=== PATIENT | male | born 1965 | race Caucasian/White ===

== ENCOUNTER 2018-08-01 08:12 | Inpatient (IN) | payer OTHER ==
[2018-08-01 08:34] VITALS: BMI 22.1
--- NOTE | 2018-08-01 08:48 | HP ---
CIWA Score Nausea/Vomitin Muscle Tremors: 2 Anxiety: 3 Agitation: 2 Paroxysmal Sweats: 1-Minimal Palms Moist Orientation: 0-Oriented Tacttile Disturbances: 1-Very Mild Itch/Numbness Auditory Disturbances: 1-Very Mild Visual Disturbances: 0-None Headache: 2-Mild CIWA-Ar Total Score: 14 - Admission Criteria OASAS Guidelines: Admission for Medically Managed Detox: Requires at least one of the followin. CIWA greater than 12 2. Seizures within the past 24 hours 3. Delirium tremens within the past 24 hours 4. Hallucinations within the past 24 hours 5. Acute intervention needed for co occurring medical disorder 6. Acute intervention needed for co occurring psychiatric disorder 7. Severe withdrawal that cannot be handled at a lower level of care (continued vomiting, continued diarrhea, abnormal vital signs) requiring intravenous medication and/or fluids 8. Admission ROS S - HPI Chief Complaint: i am here need help to stop drinking alcohol,cocaine and marijuana Allergies/Adverse Reactions: Allergies Allergy/AdvReac Type Severity Reaction Status Date / Time No Known Allergies Allergy Verified 08/01/18 09:26 History of Present Illness: this 52 years old male with alcohol,cocaine and marijuana dependence,seeking detox, last detox 2017 at [facility] [place] [facility] [place] ,seizure or black out on train history of hypertension non compliance last taking medication 6 months ago multiple admissions in the past nicotine dependence 1 pack/day ,does not want nicotine replacement weight loss bipolar disorder none compliance with medication,last 2 months ago no significant period of sobriety - Ebola screening Have you traveled outside of the country in the last 21 days: No (N) Have you had contact with anyone from an Ebola affected area: No Do you have a fever: No - Review of Systems Constitutional: Loss of Appetite, Malaise, Night Sweats, Changes in sleep, Weakness, Unintentional Wgt. Loss EENT: reports: Nose Congestion Respiratory: reports: No Symptoms reported Cardiac: reports: No Symptoms Reported GI: reports: Blood Streaked Bowels, Vomiting, Abdominal cramping : reports: No Symptoms Reported Musculoskeletal: reports: Back Pain, Muscle Pain Integumentary: reports: Dryness Neuro: reports: Headache, Tremors Endocrine: reports: No Symptoms Reported Hematology: reports: No Symptoms Reported Psychiatric: reports: No Sypmtoms Reported, Judgement Intact, Mood/Affect Appropiate, Orientated x3, Anxious, Depressed, other (bipolar disorder) Patient History - Patient Medical History Hx Anemia: No Hx Asthma: No Hx Chronic Obstructive Pulmonary Disease (COPD): No Hx Cancer: No Hx Cardiac Disorders: No Hx Congestive Heart Failure: No Hx Hypertension: Yes (non compliance) Hx Hypercholesterolemia: No Hx Pacemaker: No HX Cerebrovascular Accident: No Hx Seizures: Yes (possible 07/31/18) Hx Dementia: No Hx Diabetes: No Hx Gastrointestinal Disorders: No Hx Liver Disease: No Hx Genitourinary Disorders: No Hx Sexually Transmitted Disorders: No Hx Renal Disease (ESRD): No Hx Thyroid Disease: No Hx Human Immunodeficiency Virus (HIV): No (last 04/10 negative) Hx Hepatitis C: No Hx Depression: Yes Hx Suicide Attempt: No Hx Bipolar Disorder: Yes (no meds for 2 months) Hx Schizophrenia: No Other Medical History: no suicidal,no homicidal - Patient Surgical History Past Surgical History: No - PPD History Previous Implant?: Yes Documented Results: Negative w/o proof Implanted On Prior [facility] Admission?: No PPD to be Administered?: Yes - Smoking Cessation Smoking history: Current every day smoker Have you smoked in the past 12 months: Yes Aproximately how many cigarettes per day: 20 Cigars Per Day: 0 Hx Chewing Tobacco Use: No Initiated information on smoking cessation: Yes 'Breaking Loose' booklet given: 08/01/18 - Substance & Tx. History Hx Alcohol Use: Yes Hx Substance Use: Yes Substance Use Type: Alcohol, Cocaine, Marijuana Hx Substance Use Treatment: Yes (2016) - Substances abused Alcohol Substance route: Oral Frequency: Daily Amount used: 3 of 6 packs of 12 ozs of beer Age of first use: 28 Date of last use: 07/31/18 Cocaine Substance route: Inhalation Frequency: 1-3 times last 30 days Amount used: 100$ Age of first use: 28 Date of last use: 07/31/18 Marijuana/Hashish Frequency: 1-2 times per week Amount used: 10$ Age of first use: 28 Date of last use: 07/31/18 Family Disease History - Family Disease History Family Disease History: Other: Father (alcohol,), Mother (alcoholl, ) Admission Physical Exam [facility] - Vital Signs Vital Signs: Vital Signs - 24 hr 08/01/18 08:32 Temperature 97.0 F L Pulse Rate 65 Respiratory 18 Rate Blood Pressure 155/94 - Physical General Appearance: Yes: Moderate Distress, Tremorous, Irritable, Sweating, Anxious HEENTM: Yes: Normal ENT Inspection, Normocephalic, [place], Pharynx Normal Respiratory: Yes: Within Normal Limits, Lungs Clear, Normal Breath Sounds Neck: Yes: Within Normal Limits, Supple, Trachea in good position Cardiology: Yes: Within Normal Limits, Regular Rhythm, Regular Rate, S1, S2 Abdominal: Yes: Within Normal Limits, Normal Bowel Sounds, Non Tender, Flat, Soft Genitourinary: Yes: Within Normal Limits Back: Yes: Muscle Spasm Musculoskeletal: Yes: full range of Motion, Back pain, Muscle Pain Extremities: Yes: Tremors Neurological: Yes: whiting can worker II-XII NML intact, Fully Oriented, Alert, Motor Strength 5/5 Integumentary: Yes: Dry Lymphatic: Yes: Within Normal Limits - Diagnostic (1) Alcohol dependence with uncomplicated withdrawal Current Visit: Yes Status: Acute (2) Syncope Current Visit: Yes Status: Acute (3) Alcohol related seizure Current Visit: Yes Status: Acute (4) Essential hypertension Current Visit: Yes Status: Acute (5) Nicotine dependence Current Visit: Yes Status: Acute (6) Weight loss Current Visit: Yes Status: Acute (7) Bipolar disorder Current Visit: Yes Status: Acute Cleared for Admission S - Detox or Rehab [facility] Level of Care: Medically Managed Detox Regimen/Protocol: Librium Breathalyzer - Breathalyzer Breathalyzer: 0 Urine Drug Screen - Test Device Lot number: [id number] Expiration date: 04/22/20 - Control Is test valid?: Yes - Results Drug screen NEGATIVE: No Urine drug screen results: THC-Marijuana, PEARL-Cocaine Inpatient Rehab Admission - Rehab Decision to Admit Inpatient rehab admission?: No
[2018-08-01] MEDS ORDERED: ACETAMINOPHEN 325 MG TABLET (FP) PO PRN ×2 (09:01)
[2018-08-01] MEDS ORDERED: hydrOXYzine PAMOATE 25 MG CAPSULE (FP) PO PRN (09:01)
[2018-08-01] MEDS ORDERED: chlordiazePOXIDE HCL 25 MG CAPSULE PO PRN (09:01)
[2018-08-01] MEDS ORDERED: MAGNESIUM HYDROX 2400MG/30ML ORAL SUSPENSION 30 ML CUP PO PRN (09:01)
[2018-08-01] MEDS ORDERED: MAG HYDROX/AL HYDROX/SIMETH 30 ML UNIT-DOSE CUP PO PRN (09:01)
[2018-08-01] MEDS ORDERED: MAGNESIUM CITRATE 300 ML BOTTLE PO PRN (09:01)
[2018-08-01] MEDS ORDERED: IBUPROFEN 400 MG TABLET (FP) PO PRN (09:01)
[2018-08-01] MEDS ORDERED: MENTHOL/PHENOL 1 EACH UD MM PRN (09:01)
[2018-08-01] MEDS ORDERED: BISMUTH SUBSALICYLATE 524 MG/30 ML UD PO PRN (09:01)
[2018-08-01] MEDS ORDERED: cloNIDine HCL 0.1 MG TABLET PO ONE (09:05)
[2018-08-01] MEDS: chlordiazePOXIDE HCL 25 MG CAPSULE PO SCH ×3 (10:02→22:36)
[2018-08-01] MEDS: PRENATAL VITAMINS W/ FOLIC ACID TABLET (FP) PO SCH (10:03)
[2018-08-01] MEDS ORDERED: TRIAMTERENE AND HCTZ - 37.5 MG/25 MG CAPSULE PO ONE (17:04)
--- NOTE | 2018-08-01 17:06 | PN ---
S Progress Note Note: bp 161/100,withdrawal symptom,hypertension will give dyazide (25/37.5mg) po now then daily continue detox ,bp monitoring
[2018-08-01] MEDS: METHOCARBAMOL 500 MG TABLET PO PRN (20:34)
[2018-08-01] MEDS: THIAMINE HCL 100 MG TABLET (FP) PO SCH (22:36)
[2018-08-01] MEDS: MELATONIN 5 MG TABLETS PO PRN (22:37)
[2018-08-02] MEDS: chlordiazePOXIDE HCL 25 MG CAPSULE PO SCH ×4 (06:26→22:42)
[2018-08-02] MEDS: METHOCARBAMOL 500 MG TABLET PO PRN ×2 (06:26→20:16)
[2018-08-02 09:59] LABS: ALBUMIN 4.3 g/dl (3.4-5.0); BILIRUBIN,TOTAL 1.2 mg/dL (0.2-1); CALCIUM 9.8 mg/dL (8.5-10.1); CREATININE 0.9 mg/dL (0.55-1.3); POTASSIUM 4.3 mmol/L (3.5-5.1); TOT PROT 7.7 g/dl (6.4-8.2)
[2018-08-02 10:12] LABS: HEMATOCRIT 48.9 % (35.4-49); HEMOGLOBIN 16.5 GM/dL (11.7-16.9); MCH 30.7 pg (25.7-33.7); MCHC 33.8 g/dl (32.0-35.9); MEAN CELL VOLUME 90.9 fl (80-96); MEAN PLT VOLUME 8.5 fl (7.5-11.1); PLATELET COUNT 427 K/MM3 (134-434); RBC 5.38 M/mm3 (4.00-5.60); RDW 14.7 % (11.9-15.9); WHITE BLOOD COUNT 5.5 K/mm3 (4.0-10.0)
[2018-08-02 10:27] LABS: PH,URINE 7.5 (5.0-8.0); URINE APPEARANCE CLEAR; URINE BILIRUBIN NEGATIVE (NEGATIVE); URINE COLOR YELLOW; URINE GLUCOSE (UA) NEGATIVE (NEGATIVE); URINE KETONE NEGATIVE (NEGATIVE); URINE LEUK ESTERASE NEGATIVE (NEGATIVE); URINE NITRITE NEGATIVE (NEGATIVE); URINE PROTEIN NEGATIVE (NEGATIVE); URINE UROBILINOGEN 0.2 mg/dL (0.2-1.0)
[2018-08-02] MEDS: PRENATAL VITAMINS W/ FOLIC ACID TABLET (FP) PO SCH (10:37)
--- NOTE | 2018-08-02 11:13 | PN ---
S CIWA - CIWA Score Nausea/Vomitin-Mild Nausea/No Vomiting Muscle Tremors: 3 Anxiety: 1-Mildly Anxious Agitation: 2 Paroxysmal Sweats: 1-Minimal Palms Moist Orientation: 2-Disoriented Date<2 days Tacttile Disturbances: 0-None Auditory Disturbances: 0-None Visual Disturbances: 0-None Headache: 2-Mild CIWA-Ar Total Score: 12 [facility] Progress Note (SOAP) Subjective: long history of hypertension none adherence with antihypertensant stated with dyazide adds clonidine 0.1 mg po prn Objective: 08/02/18 11:13 Vital Signs Temperature 98.6 F 08/02/18 09:12 Pulse Rate 55 L 08/02/18 09:12 Respiratory Rate 18 08/02/18 09:12 Blood Pressure 127/80 08/02/18 09:12 O2 Sat by Pulse Oximetry (%) Laboratory Last Values WBC 5.5 K/mm3 (4.0-10.0) 08/02/18 07:40 RBC 5.38 M/mm3 (4.00-5.60) 08/02/18 07:40 Hgb 16.5 GM/dL (11.7-16.9) 08/02/18 07:40 Hct 48.9 % (35.4-49) 08/02/18 07:40 MCV 90.9 fl (80-96) 08/02/18 07:40 MCH 30.7 pg (25.7-33.7) 08/02/18 07:40 MCHC 33.8 g/dl (32.0-35.9) 08/02/18 07:40 RDW 14.7 % (11.9-15.9) 08/02/18 07:40 Plt Count 427 K/MM3 (134-434) 08/02/18 07:40 MPV 8.5 fl (7.5-11.1) 08/02/18 07:40 Sodium 138 mmol/L (136-145) 08/02/18 07:40 Potassium 4.3 mmol/L (3.5-5.1) 08/02/18 07:40 Chloride 100 mmol/L (98-107) 08/02/18 07:40 Carbon Dioxide 31 mmol/L (21-32) 08/02/18 07:40 Anion Gap 7 MMOL/L (8-16) L 08/02/18 07:40 BUN 14 mg/dL (7-18) 08/02/18 07:40 Creatinine 0.9 mg/dL (0.55-1.3) 08/02/18 07:40 Est GFR (CKD-EPI)AfAm 111.83 08/02/18 07:40 Est GFR (CKD-EPI)NonAf 96.49 08/02/18 07:40 Random Glucose 92 mg/dL (74-106) 08/02/18 07:40 Calcium 9.8 mg/dL (8.5-10.1) 08/02/18 07:40 Total Bilirubin 1.2 mg/dL (0.2-1) H 08/02/18 07:40 AST 24 U/L (15-37) 08/02/18 07:40 ALT 46 U/L (13-61) 08/02/18 07:40 Alkaline Phosphatase 105 U/L (45-117) 08/02/18 07:40 Total Protein 7.7 g/dl (6.4-8.2) 08/02/18 07:40 Albumin 4.3 g/dl (3.4-5.0) 08/02/18 07:40 Urine Color Yellow 08/02/18 08:25 Urine Appearance Clear 08/02/18 08:25 Urine pH 7.5 (5.0-8.0) 08/02/18 08:25 Ur Specific [place] 1.011 (1.010-1.035) 08/02/18 08:25 Urine Protein Negative (NEGATIVE) 08/02/18 08:25 Urine Glucose (UA) Negative (NEGATIVE) 08/02/18 08:25 Urine Ketones Negative (NEGATIVE) 08/02/18 08:25 Urine Blood Negative (NEGATIVE) 08/02/18 08:25 Urine Nitrite Negative (NEGATIVE) 08/02/18 08:25 Urine Bilirubin Negative (NEGATIVE) 08/02/18 08:25 Urine Urobilinogen 0.2 mg/dL (0.2-1.0) 08/02/18 08:25 Ur Leukocyte Esterase Negative (NEGATIVE) 08/02/18 08:25 RPR Titer Nonreactive (NONREACTIVE) 08/02/18 07:40 lab noted Assessment: 08/02/18 11:14 alcohol withdrawal sx hypertension Plan: continue detox discuss risks of bp elevation
[2018-08-02] MEDS: TRIAMTERENE AND HCTZ - 37.5 MG/25 MG CAPSULE PO SCH (11:27)
[2018-08-02] MEDS: cloNIDine HCL 0.1 MG TABLET PO PRN ×2 (13:26→22:43)
--- NOTE | 2018-08-02 15:10 | EKG ---
Test Reason : Blood Pressure : / mmHG Vent. Rate : 061 BPM Atrial Rate : 061 BPM P-R Int : 112 ms QRS Dur : 092 ms QT Int : 432 ms P-R-T Axes : 071 069 040 degrees QTc Int : 434 ms NORMAL SINUS RHYTHM WITH SINUS ARRHYTHMIA MODERATE VOLTAGE CRITERIA FOR LVH, MAY BE NORMAL VARIANT BORDERLINE ECG NO PREVIOUS ECGS AVAILABLE Confirmed by KAREN RHODES MD ([id number]) on 08/02/2018 3:10:13 PM Referred By: Confirmed By:KAREN RHODES MD
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
[2018-08-02] MEDS ORDERED: traZODone HCL 50 MG TABLET (FP) PO SCH (22:00)
[2018-08-02] MEDS: DIVALPROEX SODIUM 250 MG TABLET E.C. PO SCH (22:42)
[2018-08-02] MEDS: MELATONIN 5 MG TABLETS PO PRN (22:42)
[2018-08-02] MEDS: THIAMINE HCL 100 MG TABLET (FP) PO SCH (22:42)
[2018-08-02] MEDS: risperiDONE 1 MG TABLET (FP) PO SCH (22:42)
[2018-08-03] MEDS: chlordiazePOXIDE HCL 25 MG CAPSULE PO SCH (07:01)
[2018-08-03 09:10] VITALS: BP 91/69; PULSE 90; TEMP 96.4
[2018-08-03] MEDS: DIVALPROEX SODIUM 250 MG TABLET E.C. PO SCH (10:56)
[2018-08-03] MEDS: risperiDONE 1 MG TABLET (FP) PO SCH (10:57)
[2018-08-03] MEDS: TRIAMTERENE AND HCTZ - 37.5 MG/25 MG CAPSULE PO SCH (10:57)
[2018-08-03] MEDS: PRENATAL VITAMINS W/ FOLIC ACID TABLET (FP) PO SCH (10:57)
[2018-08-03] MEDS ORDERED: chlordiazePOXIDE HCL 10 MG CAPSULE PO PRN (11:00)
[2018-08-03] MEDS ORDERED: chlordiazePOXIDE HCL 10 MG CAPSULE PO SCH (11:00)
--- NOTE | 2018-08-03 16:00 | DS ---
[facility] Detox Discharge Summary Admission Date: 08/01/18 Discharge Date: 08/03/18 - History Present History: Alcohol Dependence Additional Comments: 52 years old male admitted on 08/01/18 for alcohol withdrawal stabilization insists to leave the detox unit without apparent reason patient is alert no acute distress denies suicidal ideation aftercare community self help support group Pertinent Past History: strong recommend the patient to utilize community health services using ER services if necessary - Physical Exam Results Vital Signs: Vital Signs Temperature 96.4 F L 08/03/18 09:09 Pulse Rate 90 08/03/18 09:09 Respiratory Rate 18 08/03/18 09:09 Blood Pressure 91/69 08/03/18 09:09 O2 Sat by Pulse Oximetry (%) Pertinent Admission Physical Exam Findings: alcohol withdrawal sx Laboratory Last Values WBC 5.5 K/mm3 (4.0-10.0) 08/02/18 07:40 RBC 5.38 M/mm3 (4.00-5.60) 08/02/18 07:40 Hgb 16.5 GM/dL (11.7-16.9) 08/02/18 07:40 Hct 48.9 % (35.4-49) 08/02/18 07:40 MCV 90.9 fl (80-96) 08/02/18 07:40 MCH 30.7 pg (25.7-33.7) 08/02/18 07:40 MCHC 33.8 g/dl (32.0-35.9) 08/02/18 07:40 RDW 14.7 % (11.9-15.9) 08/02/18 07:40 Plt Count 427 K/MM3 (134-434) 08/02/18 07:40 MPV 8.5 fl (7.5-11.1) 08/02/18 07:40 Sodium 138 mmol/L (136-145) 08/02/18 07:40 Potassium 4.3 mmol/L (3.5-5.1) 08/02/18 07:40 Chloride 100 mmol/L (98-107) 08/02/18 07:40 Carbon Dioxide 31 mmol/L (21-32) 08/02/18 07:40 Anion Gap 7 MMOL/L (8-16) L 08/02/18 07:40 BUN 14 mg/dL (7-18) 08/02/18 07:40 Creatinine 0.9 mg/dL (0.55-1.3) 08/02/18 07:40 Est GFR (CKD-EPI)AfAm 111.83 08/02/18 07:40 Est GFR (CKD-EPI)NonAf 96.49 08/02/18 07:40 Random Glucose 92 mg/dL (74-106) 08/02/18 07:40 Calcium 9.8 mg/dL (8.5-10.1) 08/02/18 07:40 Total Bilirubin 1.2 mg/dL (0.2-1) H 08/02/18 07:40 AST 24 U/L (15-37) 08/02/18 07:40 ALT 46 U/L (13-61) 08/02/18 07:40 Alkaline Phosphatase 105 U/L (45-117) 08/02/18 07:40 Total Protein 7.7 g/dl (6.4-8.2) 08/02/18 07:40 Albumin 4.3 g/dl (3.4-5.0) 08/02/18 07:40 Urine Color Yellow 08/02/18 08:25 Urine Appearance Clear 08/02/18 08:25 Urine pH 7.5 (5.0-8.0) 08/02/18 08:25 Ur Specific [place] 1.011 (1.010-1.035) 08/02/18 08:25 Urine Protein Negative (NEGATIVE) 08/02/18 08:25 Urine Glucose (UA) Negative (NEGATIVE) 08/02/18 08:25 Urine Ketones Negative (NEGATIVE) 08/02/18 08:25 Urine Blood Negative (NEGATIVE) 08/02/18 08:25 Urine Nitrite Negative (NEGATIVE) 08/02/18 08:25 Urine Bilirubin Negative (NEGATIVE) 08/02/18 08:25 Urine Urobilinogen 0.2 mg/dL (0.2-1.0) 08/02/18 08:25 Ur Leukocyte Esterase Negative (NEGATIVE) 08/02/18 08:25 RPR Titer Nonreactive (NONREACTIVE) 08/02/18 07:40 lab noted - Treatment Hospital Course: Detox Protocol Followed, Detoxed Safely, Responded well, Discharged Condition Good, Rehab Referral Accepted Patient has Accepted a Rehab Referral to: community self help support group - Medication Discharge Medications: Ambulatory Orders NK [No Known Home Medication] 08/01/18 - Diagnosis (1) Alcohol dependence with uncomplicated withdrawal Status: Acute (2) Essential hypertension Status: Chronic (3) Weight loss Status: Acute (4) Nicotine dependence Status: Acute Qualifiers: Nicotine product type: cigarettes Substance use status: in withdrawal Qualified Code(s): F17.213 - Nicotine dependence, cigarettes, with withdrawal (5) Substance induced mood disorder Status: Suspected - AMA Did Patient Leave Against Medical Advice: No
[2018-08-04] MEDS ORDERED: chlordiazePOXIDE HCL 10 MG CAPSULE PO SCH (11:00)
== END 2018-08-03 10:16 | disposition left against medical advice (07) | DRG 770 ==
LOC: YASAS 08:12 → Y3N 09:12
PROVIDERS: ADMIT Surgery; ATTEND Surgery
PROC: HZ2ZZZZ Detoxification Services for Substance Abuse Treatment (ICD-10-PCS; principal; 2018-08-01)
DX: F10.230 Alcohol dependence with withdrawal, uncomplicated (principal); F17.213 Nicotine dependence, cigarettes, with withdrawal; F19.24 Other psychoactive substance dependence with psychoactive substance-induced mood disorder; F31.9 Bipolar disorder, unspecified; I10 Essential (primary) hypertension; G47.00 Insomnia, unspecified; B18.2 Chronic viral hepatitis C; R63.4 Abnormal weight loss; Z91.14 Patient's other noncompliance with medication regimen; Z86.69 Personal history of other diseases of the nervous system and sense organs
CPT/HCPCS: 36415; 80053; 81003; 85027; 86593; 93005; 93010; J0735; J2794